=== PATIENT | male | born 1965 | race Caucasian/White ===

== ENCOUNTER 2020-10-20 11:26 | Emergency (ER) | payer SELFPAY ==
--- NOTE | ~2020-10-20 | XR_ITS ---
EXAMINATION: XR abdomen NG/feed tube insert DATE: 10/20/2020 12:38 INDICATION: Verify nasogastric tube placement TECHNIQUE: A supine view of the abdomen and lower chest was obtained for evaluation of feeding tube placement. COMPARISON: None. FINDINGS: Nasogastric tube tip in proximal side port in the body of the stomach. Gas and stool versus ingested material scattered throughout multiple loops of nondilated bowel in the visualized upper abdomen. Vis ualized bilateral mid and lower lung zones are clear. Skinfold projects over the left midlung zone. H eart size is normal. IMPRESSION: 1. Nasal gastric tube in the stomach. Reviewed, dictated and finalized at location A. [employer]
--- NOTE | ~2020-10-20 | CT_ITS ---
EXAMINATION: CT abdomen pelvis wo con DATE: 10/20/2020 12:58 INDICATION: Thumb pain and swelling. Obstruction. Nausea and vomiting. TECHNIQUE: Computed tomography (CT) of the abdomen and pelvis was performed without intravenous contr ast. Automated exposure control and iterative reconstruction technique were employed. The dose-length product was 256.84 mGy-cm. COMPARISON: None FINDINGS: Mild right basilar atelectasis. Calcified right lower lobe nodule and a few splenic calcific lesions consistent with old granulomatous disease. Heart size is normal. No pericardial or pleural effusion. Nasogastric tube tip in the body of the stomach. There is a suture line along the greater curvature o f the stomach. Calcified gallstone within the nearly decompressed gallbladder. Pancreas and bilateral adrenal glands are unremarkable on noncontrast imaging. Bilateral tiny 1 mm smaller nonobstructing r enal stones. 1.3 cm hyperdense proteinaceous/hemorrhagic cyst at the upper pole of the left kidney. N o hydronephrosis. Several suture lines are seen along the the bowels in the bilateral lower quadrants . Gas and stool throughout the colon. No dilated loops of gas-filled bowel to suggest obstruction. Th e appendix is not visualized. Bladder is normal. Diffuse mild mesenteric, retroperitoneal and body wa ll edema. No free intraperitoneal gas or fluid. Mild lower lumbar spondylosis. IMPRESSION: 1. Nasogastric tube in the stomach. No dilated loops of small bowel to suggest obstruction. 2. No evident acute intra-abdominal/pelvic process although evaluation is limited by the absence of i ntravenous contrast and the presence of nonspecific diffuse mild edema throughout the mesenteric, ret roperitoneal and subcutaneous fat. 3. Cholelithiasis. 4. Few tiny bilateral nonobstructing renal stones. Reviewed, dictated and finalized at location A. PACKER IMPRESSION: 1. Nasogastric tube in the stomach. No dilated loops of small bowel to suggest obstruction. 2. No evident acute intra-abdominal/pelvic process although evaluation is limit ed by the absence of intravenous contrast and the presence of nonspecific diffu se mild edema throughout the mesenteric, retroperitoneal and subcutaneous fat. 3. Cholelithiasis. 4. Few tiny bilateral nonobstructing renal stones.
[2020-10-20 11:32] VITALS: BP 119/86; PULSE 135; RESP 20; TEMP 36.6; O2SAT 100
[2020-10-20 12:00] VITALS: BP 133/84; PULSE 65; RESP 18; TEMP 36.6; O2SAT 100
[2020-10-20] MEDS: SODIUM CHLORIDE 0.9% IV 1,000 ML 999 ML IV CONT (12:45)
[2020-10-20] MEDS: HYDROmorphone HCL INJ (*CRX) 1 MG/ML SYR IV PUSH ×2 (12:46→13:04)
[2020-10-20] MEDS: ONDANSETRON INJ 4 MG/2 ML VIAL IV PUSH (12:46)
[2020-10-20 12:56] LABS: Basophils Percent Auto 0.3 % (0.2-1.2); Eosinophils Percent Auto 1.1 % (0-4.4); Hematocrit 25.7 % (42.0-52.0); Hemoglobin 7.8 g/dL (14.0-18.0); Immature Granulocyte Absolute 0.01 K/mm3 (0.00-0.031); Immature Granulocyte Percent A 0.3 % (0-0.5); Lymphocytes Absolute Auto 0.44 K/mm3 (0.9-3.2); Lymphocytes Percent Auto 12.5 % (18.3-44.2); Mean Corpuscular HGB Conc 30.4 g/dl (32-36); Mean Corpuscular Hemoglobin 24.8 pg (26-34); Mean Corpuscular Volume 81.8 fl (80-100); Mean Platelet Volume 8.9 fl (7.4-10.4); Monocytes Absolute Auto 0.5 K/mm3 (0.1-0.6); Monocytes Percent Auto 15.1 % (2.6-8.5); Neutrophils Absolute Auto 2.5 K/mm3 (1.3-6.7); Neutrophils Percent Auto 70.7 % (45.5-73.1); Platelet Count Result 182 k/mm3 (150-375); Red Blood Count 3.14 M/mm3 (4.6-6.20); White Blood Count 3.5 K/mm3 (4.5-10.0)
[2020-10-20 13:00] VITALS: BP 131/84; PULSE 82; RESP 19; TEMP 36.8; O2SAT 99
--- NOTE | 2020-10-20 13:03 | ED.ABDPAIN ---
HPI - Abdominal Pain General Chief Complaint: Abdominal Pain Stated Complaint: abdominal distention Time Seen by Provider: 10/20/20 12:00 History of Present Illness HPI narrative: Patient is a 55-year-old male who presents ER with abdominal pain and distention. 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 Patient also had a perforated viscus 5 months ago that was repaired in [facility] where he currently resides. Patient is in town for his mother's . Patient has not had a bowel movement in 2 days and noticed his stomach began distending yesterday. He is vomiting and believes he is also vomiting fecal material. No alleviating factors. Pain is worse with any type of movement. Related Data Allergies Allergy/AdvReac Type Severity Reaction Status Date / Time iohexol Allergy Anaphylactic Verified 10/20/20 13:31 [From contrast - CT, X-RAY] Shock morphine Allergy Hives Verified 10/20/20 13:31 fentanyl AdvReac Difficulty Verified 10/20/20 13:31 Breathing Review of Systems Review of Systems: All systems reviewed & are unremarkable except as noted in HPI and below Constitutional: Constitutional: Denies chills, Denies fever(s) and Denies weakness ENT: Denies nasal congestion and Denies sore throat Cardiovascular: Cardiovascular: Denies chest pain and Denies radiating jaw, neck or arm pain Respiratory: Respiratory: Denies cough, Denies dyspnea and Denies wheezing Gastrointestinal: Gastrointestinal: Reports abdominal pain, Reports bloating, Reports constipation, Reports nausea and Reports vomiting PMFSH Past Medical History Medical History (Updated 10/20/20 @ 13:53 by Bryant Castro MD) Anemia Asbestosis Carcinoid tumor Surgical History Surgical History (Updated 10/20/20 @ 13:06 by Bryant Castro MD) H/O resection of small bowel History of partial colectomy Social History Social History (Updated 10/20/20 @ 13:07 by Bryant Castro MD) 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 Gender identity (if verbalized by the patient): Male Exam Narrative: Exam Narrative: GENERAL: Chronically ill-appearing, well-nourished and in no acute distress. HEAD: Normocephalic, atraumatic. ENT: Mucous membranes moist. CHEST: Clear to auscultation. No respiratory distress. HEART: Tachycardic and regular. Normal peripheral pulses. ABDOMEN: Firm, distended, diffusely tender. Frequent belching. EXTREMITIES: Normal range of motion. No edema. SKIN: Warm, dry, no rash. NEURO: Alert and oriented x3. PSYCH: Normal mood and affect. Course Reevaluation(s) Reevaluation #1: While in the ER patient placed his own nasogastric tube. He received pain medication through an IV. Prior to receiving his CT or lab results patient had contacted the nurse and stated that he wanted to leave AGAINST MEDICAL ADVICE. I went down to his room and I explained his lab results as well as the CT results and asked why he was wanting to leave AGAINST MEDICAL ADVICE. He reports that he is having discomfort with laying on the bed and that he would like to leave. Discussed that if he is having persistent pain despite having a negative CT scan and like to admit him to the hospitalist service and potentially get a surgical consultation given the extensive surgical history that he has had and the discomfort that he is having his abdomen. Patient has declined this and verbalized understanding that he risks , worsening of condition, and potentially permanent disability from not completing his medical evaluation. Date: 10/20/20 Time: 13:53 Vital Signs Vital signs: Vital Signs Temperature 97.9 F 10/20/20 11:32 Pulse Rate 135 H 10/20/20 11:32 Respiratory Rate 20 10/20/20 11:32 Blood Pressure 119/86 10/20/20 11:32 Pulse Oximetry 100 10/20/20 11:32 Temperature 98.3 F 10/20/20 13:00 Pulse Rate 82 10/20/20 13:00 Respiratory Rate 19 10/20/20 13:00 Blood Pressure
[2020-10-20 13:06] LABS: Alanine Aminotransferase 24 U/L (4-50); Albumin Level 3.1 g/dL (3.5-5.1); Alkaline Phosphatase 59 U/L (38-126); Anion Gap 1 mmol/L (8-16); Aspartate Amino Transferase 24 U/L (17-59); Bilirubin,Total 0.4 mg/dL (0.2-1.3); Blood Urea Nitrogen 14 mg/dL (9-20); Calcium 7.9 mg/dL (8.4-10.2); Carbon Dioxide 23 mmol/L (22-30); Chloride 112 mmol/L (98-107); Estimated CRCL calculation 84 ml/min; Estimated Glomerular Filt Rate > 60; Glucose 93 mg/dL (75-110); Lipase 156 U/L (23-300); Potassium 3.7 mmol/L (3.4-5.0); Sodium 136 mmol/L (137-145)
== END 2020-10-20 13:52 | disposition left against medical advice (07) ==
PROVIDERS: Emergency Provider Emergency Medicine
DX: R14.0 Abdominal distension (gaseous) (principal); R10.9 Unspecified abdominal pain; J61 Pneumoconiosis due to asbestos and other mineral fibers; Z90.49 Acquired absence of other specified parts of digestive tract; K80.20 Calculus of gallbladder without cholecystitis without obstruction; N20.0 Calculus of kidney
CPT/HCPCS: 36415; 74176; 80053; 83690; 85025; 96361; 96374; 96375; 99284; J1170; J2405; J7030